=== PATIENT | female | born 1980 | race Caucasian/White ===

== ENCOUNTER 2018-10-14 13:35 | Emergency (ER) | payer MEDICAID, OTHER ==
[~2018-10-14] VITALS: Ht 167.6 cm; Wt 87.0 kg
[2018-10-14 14:11] VITALS: BP 131/70
[2018-10-14] MEDS ORDERED: ACETAMINOPHEN 500 MG TABLET PO ONE (14:30)
[2018-10-14] MEDS ORDERED: ACETAMINOPHEN 500 MG TABLET ONE (14:47)
--- NOTE | 2018-10-14 14:49 | NUR ---
PA TO BEDSIDE FOR ASSESSMENT
--- NOTE | 2018-10-14 15:22 | NUR ---
TAKEN TO RAD
== END 2018-10-14 17:22 | disposition home or self-care (01) ==
LOC: ED 17:18
DX: G89.29 Other chronic pain (principal); M47.892 Other spondylosis, cervical region; M48.02 Spinal stenosis, cervical region
CPT/HCPCS: 72050; 99283

== ENCOUNTER 2018-10-19 18:23 | Emergency (ER) | payer MEDICAID, OTHER ==
[~2018-10-19] VITALS: Ht 160 cm; Wt 88.0 kg
[2018-10-19 19:03] LABS: BASOPHILS # (AUTO) 0.03 x10^3/uL (0-0.1); BASOPHILS % (AUTO) 0 % (0-1); EOSINOPHILS # (AUTO) 0.21 x10^3/uL (0-0.4); EOSINOPHILS % (AUTO) 2 % (1-7); LYMPHOCYTES # (AUTO) 2.03 x10^3/uL (1-3.4); LYMPHOCYTES % (AUTO) 23 % (22-44); MD NO; MEAN CORPUSCULAR HEMOGLOBIN 28.1 pg (27.0-34.8); MEAN CORPUSCULAR HGB CONC 33.2 g/dL (32.4-35.8); MEAN CORPUSCULAR VOLUME 84.6 fL (80-100); MEAN PLATELET VOLUME 8.2 fL (7.4-10.4); MONOCYTES # (AUTO) 0.73 x10^3/uL (0.2-0.8); MONOCYTES % (AUTO) 8 % (2-9); NEUTROPHILS # (AUTO) 5.83 x10^3/uL (1.8-6.8); NEUTROPHILS % (AUTO) 66 % (42-75); PLATELET COUNT 312 x10^3/uL (130-400); RED BLOOD COUNT 4.38 x10^6/uL (3.82-5.3); RED CELL DISTRIBUTION WIDTH 15.7 % (9.6-15.2)
[2018-10-19 19:14] LABS: ALANINE AMINOTRANSFERASE 18 U/L (12-78); ALBUMIN 3.5 g/dL (3.4-5.0); ANION GAP 5 mmol/L (5-15); CALCIUM 8.3 mg/dL (8.5-10.1); CHLORIDE 110 mmol/L (98-107); CREATININE 0.67 mg/dL (0.55-1.02)
[2018-10-19 19:31] LABS: ALKALINE PHOSPHATASE 80 U/L (45-117); BILIRUBIN,TOTAL 0.3 mg/dL (0.2-1.0); TOTAL PROTEIN 7.1 g/dL (6.4-8.2)
--- NOTE | 2018-10-19 21:30 | NUR ---
FIRST CONTACT WITH PT. PT C/O BROWNISH VAGINAL BLEEDING WITH LOWER ABD PAIN X 3-4 DAYS. PT IS APPROX 13 WEEKS . PT DENIES N/V AT THIS TIME. BP/SPO2 MONITORS IN PLACE. CALL LIGHT WITHIN REACH. PA AT BEDSIDE. FAMILY AT BEDSIDE WELL.
--- NOTE | 2018-10-19 23:02 | NUR ---
pt resting in [facility]. pt's aox4. resps even and unlabored. bp/spo2 monitors in place. call light within reach.
[2018-10-19 23:17] VITALS: BP 126/64
--- NOTE | 2018-10-19 23:18 | NUR ---
PT GIVEN DC INSTRUCTIONS. PT AMB TO DC WITH STEADY GAIT. PT'S AOX4. RESPS EVEN AND UNLABORED. NO ACUTE DISTRESS AT DC.
== END 2018-10-19 23:18 | disposition home or self-care (01) ==
LOC: ED 21:26
DX: O36.4XX0 Maternal care for intrauterine death, not applicable or unspecified (principal); O20.9 Hemorrhage in early pregnancy, unspecified; G56.00 Carpal tunnel syndrome, unspecified upper limb; Z3A.08 8 weeks gestation of pregnancy; Z90.49 Acquired absence of other specified parts of digestive tract; Z90.89 Acquired absence of other organs
CPT/HCPCS: 36415; 76801; 80053; 84702; 85025; 86901; 99284

== ENCOUNTER 2019-03-25 18:33 | Emergency (ER) | payer MEDICAID, OTHER ==
[~2019-03-25] VITALS: Ht 165.1 cm; Wt 87.5 kg
[2019-03-25 18:40] VITALS: BP 127/76
== END 2019-03-25 19:45 | disposition home or self-care (01) ==
LOC: ED 19:20
DX: S43.52XA Sprain of left acromioclavicular joint, initial encounter (principal); S16.1XXA Strain of muscle, fascia and tendon at neck level, initial encounter; Z90.49 Acquired absence of other specified parts of digestive tract; V49.19XA Passenger injured in collision with other motor vehicles in nontraffic accident, initial encounter; Y93.89 Activity, other specified; Y92.89 Other specified places as the place of occurrence of the external cause; Y99.8 Other external cause status
CPT/HCPCS: 72050; 99283